=== PATIENT | male | born 2000 | race Caucasian/White ===

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

== ENCOUNTER 2021-03-20 12:25 | Emergency (ER) | payer OTHER ==
[2021-03-20 12:32] VITALS: BP 119/68; PULSE 68; TEMP 98.5; BMI 28.8
== END 2021-03-20 12:48 | disposition home or self-care (01) ==
LOC: FER 12:25
DX: Z48.02 Encounter for removal of sutures (principal)
CPT/HCPCS: 99281-25